=== PATIENT | female | born 1950 | race African-American/Black ===

== ENCOUNTER 2017-11-03 12:11 | Emergency (ER) | payer MEDICARE, OTHER ==
[2017-11-03 12:57] LABS: BILIRUBIN,URINE SMALL (NEG); CLARITY,URINE CLOUDY; COLOR,URINE YELLOW; GLUCOSE,URINE NEGATIVE (NEG)
[2017-11-03 12:58] LABS: HYALINE CASTS, URINE FEW /HPF; NITRITE,URINE NEGATIVE (NEG); PROTEIN,URINE 100 mg/dL (NEG-TRACE); SQUAMOUS EPITHELIAL CELL,UR MANY /LPF; UROBILINOGEN,URINE 0.2 mg/dL (0.2 mg/dL)
[2017-11-03 13:01] LABS: BACTERIA,URINE MANY /HPF (0-FEW); RBC,URINE OCC /HPF (0-2)
[2017-11-03] MEDS: IV NORMAL SALINE 500ML BAG 500 ML IV (13:15)
[2017-11-03] MEDS: ONDANSETRON PF 4 MG/2 ML VIAL. IV (13:30)
[2017-11-03 13:33] LABS: ADD MAN DIFF? NO
[2017-11-03 13:37] LABS: BASO % 0 % (0-3); EOS # 0.1 x10^3/uL (0.0-0.7); EOS % 1 % (0-3); HEMOGLOBIN 11.5 g/dL (12.0-15.5); LYMPH # 1.3 x10^3/uL (1.0-4.8); LYMPH % 27 % (24-48); MEAN CORPUSCULAR HEMOGLOBIN 30 pg (25-35); MEAN CORPUSCULAR HGB CONC 32 g/dL (31-37); MEAN CORPUSCULAR VOLUME 93 fL (79-100); MONO # 0.3 x10^3/uL (0.0-1.1); MONO % 6 % (0-9); NEUT # 3.2 x10^3uL (1.8-7.7); NEUT % 66 % (31-73); PLATELET COUNT 150 x10^3/uL (140-400); RED BLOOD COUNT 3.88 x10^6/uL (3.50-5.40); RED CELL DISTRIBUTION WIDTH 13.5 % (11.5-14.5); WHITE BLOOD COUNT 4.9 x10^3/uL (4.0-11.0)
[2017-11-03 14:27] LABS: ANION GAP 11 (6-14); BLOOD UREA NITROGEN 12 mg/dL (7-20); BUN/CREATININE RATIO 13 (6-20); CALCIUM 9.7 mg/dL (8.5-10.1); CARBON DIOXIDE 24 mmol/L (21-32); CHLORIDE 106 mmol/L (98-107); CREATININE 0.9 mg/dL (0.6-1.0); GFR 75.1; GLUCOSE 92 mg/dL (70-99); POTASSIUM 3.7 mmol/L (3.5-5.1); SODIUM 141 mmol/L (136-145)
[2017-11-03 14:35] LABS: ALBUMIN 3.3 g/dL (3.4-5.0); ALBUMIN/GLOBULIN RATIO 0.7 (1.0-1.7); ALK PHOS 141 U/L (46-116); ALT (SGPT) 40 U/L (14-59); AST (SGOT) 30 U/L (15-37); LIPASE 72 U/L (73-393); TOTAL BILIRUBIN 0.7 mg/dL (0.2-1.0); TOTAL PROTEIN 8.3 g/dL (6.4-8.2)
[2017-11-03 14:40] LABS: TROPONINI < 0.017 ng/mL (0.000-0.055)
== END 2017-11-03 14:57 | disposition home or self-care (01) ==
LOC: ER 12:11
DX: N39.0 Urinary tract infection, site not specified (principal); I50.9 Heart failure, unspecified; Z95.0 Presence of cardiac pacemaker; Z98.84 Bariatric surgery status; Z79.01 Long term (current) use of anticoagulants
CPT/HCPCS: 36415; 71045; 80053; 81001; 83690; 84484; 85025; 87086; 93005; 96360; 99285-25; J7040

== ENCOUNTER 2019-01-14 16:59 | Emergency (ER) | payer MEDICARE, OTHER ==
[~2019-01-14] VITALS: Ht 167.6 cm; Wt 140.6 kg
[~2019-01-14 16:59] MED LIST: CEPH-264 PO; ONDA4TAB10 PO
[2019-01-14 18:47] VITALS: BP 124/69
--- NOTE | 2019-01-14 18:49 | PHYS DOC ---
Past Medical History Past Medical History: CHF (GLENYS PATEL APRN) Past Surgical History: Cholecystectomy, Pacemaker Additional Past Surgical Histo: gastric bypass (GLENYS PATEL APRN) Alcohol Use: None Drug Use: None (GLENYS PATEL APRN) Adult General Chief Complaint Chief Complaint: HYPERTENSION HPI HPI Patient is a 68 year old female presents with the chief complaint of hypertension. Patient states that she went to an urgent care earlier today because her blood pressure was high and states that she felt dizzy, had headache on the left side of her head. Patient states that then her blood pressure went down on its own and symptoms resolved. Urgent Care recommended to come to ER so patient did so. Patient has no complaints at this time. She did not try any interventions. 0/10 pain. (GLENYS PATEL APRN) Review of Systems Review of Systems Constitutional: Denies fever or chills [] Eyes: Denies change in visual acuity, redness, or eye pain [] HENT: Denies nasal congestion or sore throat [] Respiratory: Denies cough or shortness of breath [] Cardiovascular: No additional information not addressed in HPI [] GI: Denies abdominal pain, nausea, vomiting, bloody stools or diarrhea [] : Denies dysuria or hematuria [] Musculoskeletal: Denies back pain or joint pain [] Integument: Denies rash or skin lesions [] Neurologic: Denies headache, focal weakness or sensory changes [] Endocrine: Denies polyuria or polydipsia [] Complete systems were reviewed and found to be within normal limits, except as documented in this note. (GLENYS PATEL APRN) Allergies Allergies Allergies Coded Allergies Type Severity Reaction Last Updated Verified No Known Drug Allergies 11/03/17 No (KENTRELL KAM MD) Physical Exam Physical Exam Constitutional: Well developed, well nourished, no acute distress, non-toxic appearance. [] HENT: Normocephalic, atraumatic, bilateral external ears normal, oropharynx moist, no oral exudates, nose normal. [] Eyes: PERRLA, EOMI, conjunctiva normal, no discharge. [] Neck: Normal range of motion, no tenderness, supple, no stridor. [] Cardiovascular:Heart rate regular rhythm, no murmur [] Lungs & Thorax: Bilateral breath sounds clear to auscultation [] Abdomen: Bowel sounds normal, soft, no tenderness, no masses, no pulsatile masses. [] Skin: Warm, dry, no erythema, no rash. [] Back: No tenderness, no CVA tenderness. [] Extremities: No tenderness, no cyanosis, no clubbing, ROM intact, no edema. [] Neurologic: Alert and oriented X 3, normal motor function, normal sensory function, no focal deficits noted. [] Psychologic: Affect normal, judgement normal, mood normal. [] (GLENYS PATEL APRN) Current Patient Data Vital Signs Vital Signs Date Time Temp Pulse Resp B/P (MAP) Pulse Ox O2 Delivery O2 Flow Rate FiO2 01/14/19 18:47 98.0 70 18 124/69 (87) 95 Room Air 98.0 (KENTRELL KAM MD) EKG EKG [] (GLENYS PATEL APRN) Radiology/Procedures Radiology/Procedures [] (GLENYS PATEL APRN) Course & Med Decision Making Course & Med Decision Making Pertinent Labs and Imaging studies reviewed. (See chart for details) Discussed with patient her symptoms. Her blood pressure was 124/79 in the room and she was asymptomatic. Offered CT scans, labs and full workup. Patient declined and stated that she wanted to go home since blood pressure has dropped. Advised patient of risks and asked her to track blood pressure at home and follow up with primary care doctor. Instructed to return to ER if symptoms come back. Patient is agreeable. (GLENYS PATEL APRN) Course & Med Decision Making This patient was seen by KAROL. I did not see or evaluate the pt unless otherwise specified but I was available for consultation. (KENTRELL KAM MD) Dragon Disclaimer Dragon Disclaimer This electronic medical record was generated, in whole or in part, using a voice recognition dictation system. (GLENYS PATEL APRN) Departure Departure Impression: Primary Impression: Hypertension Disposition: 01 HOME, SELF-CARE Condition: STABLE Referrals: SARA STARK DO (PCP) Patient Instructions: Hypertension Additional Instructions: Please follow up with your primary care doctor. If symptoms return come back to ER. Problem Qualifiers Primary Impression: Hypertension Hypertension type: unspecified Qualified Codes: I10 - Essential (primary) hypertension GLENYS PATEL APRN January 14, 2019 18:49 KENTRELL AKM MD January 15, 2019 00:31
== END 2019-01-14 18:54 | disposition home or self-care (01) ==
LOC: ER 16:59
DX: I11.0 Hypertensive heart disease with heart failure (principal); I50.9 Heart failure, unspecified; R42 Dizziness and giddiness; Z95.0 Presence of cardiac pacemaker
CPT/HCPCS: 99281